=== PATIENT | male | born 1960 | race African-American/Black ===

== ENCOUNTER 2019-03-02 11:27 | Emergency (ER) | payer OTHER ==
[~2019-03-02] VITALS: Ht 165.1 cm; Wt 80.7 kg
[2019-03-02 11:35] VITALS: BP 159/80
--- NOTE | 2019-03-02 11:55 | NUR ---
PATIENT PRESENTS TO ED WITH C/O LT LEG PAIN FOR APPROX 2 WEEKS. PT DENIES ANY TRAUMA/INJURY. NO OBVIOUS DEFORMITY NOTED. +ROM TO AFFECTED EXTREMITY. PATIENT STATES PAIN OF 9/10 AT THIS TIME; VSS; POSITIONED FOR COMFORT; BEDRAILS UP X1; BED DOWN. ER MD TO EVALUATE PT.
--- NOTE | 2019-03-02 13:15 | NUR ---
Patient resting comfortably in bed. Vital Signs within normal limits. No new orders at this time.
[2019-03-02] MEDS ORDERED: KETOROLAC 60 MG/2 ML VIAL IM ONE (14:45)
[2019-03-02 15:19] LABS: BASOPHILS # (AUTO) 0.1 K/uL (0.00-0.22); BASOPHILS % (AUTO) 1.7 % (0.0-2.0); EOSINOPHILS # (AUTO) 0.2 K/uL (0-0.4); EOSINOPHILS % (AUTO) 2.1 % (0.0-4.0); HEMATOCRIT 41.3 % (36-52); HEMOGLOBIN 13.9 g/dL (12.0-18.0); LYMPHOCYTES # (AUTO) 2.9 K/uL (2.0-11.5); LYMPHOCYTES % (AUTO) 39.9 % (20.5-51.1); MEAN CORPUSCULAR HEMOGLOBIN 34 pg (27-31); MEAN CORPUSCULAR HGB CONC 34 g/dL (33-37); MEAN CORPUSCULAR VOLUME 99.6 fL (80-94); MONOCYTES # (AUTO) 0.5 K/uL (0.8-1.0); MONOCYTES % (AUTO) 6.6 % (1.7-9.3); NEUTROPHILS # (AUTO) 3.6 K/uL (1.8-7.7); NEUTROPHILS % (AUTO) 49.7 % (42.2-75.2); PLATELET COUNT (AUTO) 201 K/uL (140-450); RED BLOOD CELL COUNT(AUTO) 4.15 MIL/uL (4.20-6.10); RED CELL DISTRIBUTION WIDTH 13.5 % (11.6-13.7); WHITE BLOOD COUNT (AUTO) 7.2 K/uL (4.8-10.8)
[2019-03-02 15:26] LABS: APPEARANCE,URINE CLEAR (CLEAR); BILIRUBIN,URINE NEGATIVE (NEGATIVE); BLOOD, URINE NEGATIVE (NEGATIVE); COLOR,URINE YELLOW (YELLOW); LEUKOCYTE ESTERASE ,URINE NEGATIVE (NEGATIVE); NITRITE, URINE NEGATIVE (NEGATIVE); PH,URINE 5.5 (5.0-9.0); UGLUCOSE NEGATIVE (NEGATIVE)
[2019-03-02 15:33] LABS: ANION GAP 12.2 (8-16); CARBON DIOXIDE 26.4 mmol/L (21-32); CREATININE 1.1 mg/dL (0.7-1.3); POTASSIUM 4.6 mmol/L (3.5-5.1)
[2019-03-02 15:37] LABS: BARBITURATE, URINE NEG. ng/ml (NEG <=200); BENZODIAZEPINE, URINE NEG. ng/mL (NEG <=200); CANNABINOID, URINE POS. ng/mL (NEG <=50); COCAINE, URINE NEG. ng/mL (NEG <=300); OPIATE, URINE NEG. ng/mL (NEG <=2000); PHENCYCLIDINE SCREEN,URINE NEG. ng/mL (NEG <=25)
[2019-03-02 15:40] LABS: ALBUMIN 3.7 g/dL (3.4-5.0); TOTAL BILIRUBIN 0.9 mg/dL (0.0-1.0)
[2019-03-02 16:45] VITALS: BP 140/75
--- NOTE | 2019-03-02 16:45 | NUR ---
Patient discharged with v/s stable. Written and verbal after care instructions given and explained. Patient alert, oriented and verbalized understanding of instructions. Ambulatory with steady gait. All questions addressed prior to discharge. ID band removed. Patient advised to follow up with PMD. Rx of ATIVAN,NAPROSYN given. Patient educated on indication of medication including possible reaction and side effects. Opportunity to ask questions provided and answered.
== END 2019-03-02 16:45 | disposition home or self-care (01) ==
LOC: MED 11:27
DX: R25.2 Cramp and spasm (principal); E86.0 Dehydration
CPT/HCPCS: 36415; 80053; 80305; 81003; 85025; 96372; 99283; J1885

== ENCOUNTER 2019-03-09 11:40 | Emergency (ER) | payer OTHER ==
[~2019-03-09] VITALS: Ht 165.1 cm; Wt 79.8 kg
[2019-03-09 11:47] VITALS: BP 153/83
--- NOTE | 2019-03-09 11:53 | NUR ---
PT AMBULATED TO ER BED 6
--- NOTE | 2019-03-09 12:01 | NUR ---
DR. ANGELES BEDSIDE EVALUATING PT
--- NOTE | 2019-03-09 12:05 | NUR ---
PT C/O R LEG PAIN RADIATING FROM HIP TO CALF, 8/10, STABBING X 1 WEEK. PT WAS SEEN HERE 03/02/19, AND IS STILL HAVING PAIN. DENIES INJURY. AMBULATORY WITH STEADY GAIT. DENIES N/V/D; SKIN IS PINK/WARM/DRY; AAOX4; PT DENIES ANY FEVER, CP, SOB, OR COUGH AT THIS TIME; PATIENT STATES PAIN OF 8/10 AT THIS TIME; VSS; PATIENT POSITIONED FOR COMFORT; HOB ELEVATED; BEDRAILS UP X1; BED DOWN. ER MD MADE AWARE OF PT STATUS.
[2019-03-09 13:34] VITALS: BP 155/95
--- NOTE | 2019-03-09 13:34 | NUR ---
Patient discharged with v/s stable. Written and verbal after care instructions given and explained. Patient alert, oriented and verbalized understanding of instructions. Ambulatory with steady gait. All questions addressed prior to discharge. ID band removed. Patient advised to follow up with PMD. Rx of Valium and Ibuprofen given. Patient educated on indication of medication including possible reaction and side effects. Opportunity to ask questions provided and answered.
== END 2019-03-09 13:34 | disposition home or self-care (01) ==
LOC: MED 11:40
DX: M54.42 Lumbago with sciatica, left side (principal); F17.210 Nicotine dependence, cigarettes, uncomplicated
CPT/HCPCS: 99283

== ENCOUNTER 2019-03-14 14:24 | Emergency (ER) | payer OTHER ==
[~2019-03-14] VITALS: Ht 165.1 cm; Wt 80.5 kg
[2019-03-14 14:33] VITALS: BP 164/75
--- NOTE | 2019-03-14 14:40 | NUR ---
PT AMBULATED TO BED 5 AT THIS TIME.
--- NOTE | 2019-03-14 14:46 | NUR ---
PT BIB SELF TO THE ED WITH THE CHIEF C/O LEFT LEG PAIN FOR 3 WEEKS. DENIES FALLS. AMBULATES WITH PAIN. PT WAS HERE LAST WEEK FOR SAME REASON. TAKING IBUPROFEN AND VALIUM FROM LAST VISIT. STATES PAIN OF 6/10 AT THIS TIME. DENIES ANY OTHER PROBLEM.
--- NOTE | 2019-03-14 15:07 | NUR ---
PT BEING EVALUATED BY REBAR WORKER AT THIS TIME.
[2019-03-14] MEDS ORDERED: IBUPROFEN 600 MG TAB PO ONE (15:30)
--- NOTE | 2019-03-14 16:58 | NUR ---
Patient discharged with v/s stable. Written and verbal after care instructions given and explained. Patient alert, oriented and verbalized understanding of instructions. Ambulatory with steady gait. All questions addressed prior to discharge. ID band removed. Patient advised to follow up with PMD. Rx of NAPROSYN AND TRAMADOL given. Patient educated on indication of medication including possible reaction and side effects. Opportunity to ask questions provided and answered.
[2019-03-14 16:59] VITALS: BP 146/82
== END 2019-03-14 16:58 | disposition home or self-care (01) ==
LOC: MED 14:24
DX: G89.29 Other chronic pain (principal); M79.605 Pain in left leg; F17.210 Nicotine dependence, cigarettes, uncomplicated
CPT/HCPCS: 99283

== ENCOUNTER 2019-03-23 14:14 | Emergency (ER) | payer OTHER ==
[~2019-03-23] VITALS: Ht 165.1 cm; Wt 81.6 kg
[2019-03-23 14:32] VITALS: BP 132/83
--- NOTE | 2019-03-23 15:50 | NUR ---
PT IS A 58 Y/O MALE WHO PRESENTS TO THE ED C/O L LEG PAIN X1 MONTH. PT WAS RECENTLY SEEN IN ED AND GIVEN RX OF MOTRIN AND TRAMADOL WITH NO RELIEF. PT REPORTS 10/10 ACHING L LEG PAIN THAT DOES NOT RADIATE. NO OBVIOUS TX/DEFORMITY. PT AWAKE AND ALERT, RR EVEN/UNLABORED. PT REPOSITIONED FOR COMFORT, PT SITTING IN CHAIR. ER PROVIDER NOTIFIED. WILL CONTINUE TO MONITOR. MEDHX:DENIES RX:IBUPROFEN, TRAMADOL
--- NOTE | 2019-03-23 16:03 | NUR ---
Patient transferred to bed 8 for further care. RN re-evaluating the patient at bedside.
--- NOTE | 2019-03-23 16:05 | NUR ---
PATIENT REPORT GIVEN TO DELFIN TOMLIN. TRANSFER OF CARE AT THIS TIME.
--- NOTE | 2019-03-23 16:30 | NUR ---
PT C/O LT LEG PAIN X1 MONTH. PT REPORTS CRAMPING LEG PAIN THAT INCREASES WITH WALKING. PT WAS SEEN HERE LAST WEEK FOR SAME SYMPTOMS, WAS TOLD TO SEE AN SURGICAL SERVICES DIRECTOR, APPOINTMENT NEXT WEEK FOR PCP IN ORDER TO GET A REFERAL FOR SPECIALIST. DENIES ANY WARM, REDNESS UNDER THE CALF AT THIS TIME. PT LYING COMFORTABLY IN HIS BED. WILL CONITNUE TO MONITOR PT. MEDHX:DENIES RX:IBUPROFEN, TRAMADOL
[2019-03-23 16:48] LABS: BASOPHILS # (AUTO) 0.1 K/uL (0.00-0.22); BASOPHILS % (AUTO) 1.1 % (0.0-2.0); EOSINOPHILS # (AUTO) 0.3 K/uL (0-0.4); HEMATOCRIT 41.9 % (36-52); LYMPHOCYTES # (AUTO) 3.1 K/uL (2.0-11.5); LYMPHOCYTES % (AUTO) 43.8 % (20.5-51.1); MEAN CORPUSCULAR HEMOGLOBIN 33 pg (27-31); MEAN CORPUSCULAR HGB CONC 33 g/dL (33-37); MEAN CORPUSCULAR VOLUME 99.5 fL (80-94); MONOCYTES # (AUTO) 0.5 K/uL (0.8-1.0); MONOCYTES % (AUTO) 7.4 % (1.7-9.3); NEUTROPHILS # (AUTO) 3.1 K/uL (1.8-7.7); NEUTROPHILS % (AUTO) 43.7 % (42.2-75.2); PLATELET COUNT (AUTO) 198 K/uL (140-450); RED BLOOD CELL COUNT(AUTO) 4.22 MIL/uL (4.20-6.10); RED CELL DISTRIBUTION WIDTH 13.2 % (11.6-13.7); WHITE BLOOD COUNT (AUTO) 7.1 K/uL (4.8-10.8)
[2019-03-23 17:09] LABS: ANION GAP 16.2 (8-16); CARBON DIOXIDE 24.2 mmol/L (21-32); CREATININE 1.2 mg/dL (0.7-1.3); POTASSIUM 4.4 mmol/L (3.5-5.1)
[2019-03-23 17:15] LABS: ALBUMIN 3.9 g/dL (3.4-5.0); TOTAL BILIRUBIN 0.9 mg/dL (0.0-1.0)
[2019-03-23 17:32] LABS: APPEARANCE,URINE CLEAR (CLEAR); BILIRUBIN,URINE NEGATIVE (NEGATIVE); BLOOD, URINE NEGATIVE (NEGATIVE); COLOR,URINE YELLOW (YELLOW); LEUKOCYTE ESTERASE ,URINE NEGATIVE (NEGATIVE); NITRITE, URINE NEGATIVE (NEGATIVE); PH,URINE 5.5 (5.0-9.0); UGLUCOSE NEGATIVE (NEGATIVE)
[2019-03-23 17:52] VITALS: BP 138/73
--- NOTE | 2019-03-23 17:53 | NUR ---
Patient discharged with v/s stable. Written and verbal after care instructions given and explained. Patient alert, oriented and verbalized understanding of instructions. Ambulatory with steady gait. All questions addressed prior to discharge. ID band removed. Patient advised to follow up with PMD. Rx of DIPHENHYDRAMINE HYCL, TRAMADOL HCL, IBUPROFEN given. Patient educated on indication of medication including possible reaction and side effects. Opportunity to ask questions provided and answered.
== END 2019-03-23 17:53 | disposition home or self-care (01) ==
LOC: MED 14:14
DX: M79.605 Pain in left leg (principal); F17.200 Nicotine dependence, unspecified, uncomplicated; Z71.6 Tobacco abuse counseling
CPT/HCPCS: 36415; 80053; 81003; 85025; 85379; 93971; 99284; Q0092

== ENCOUNTER 2019-04-08 13:53 | Emergency (ER) | payer OTHER ==
[~2019-04-08] VITALS: Ht 165.1 cm; Wt 79.8 kg
[2019-04-08 14:05] VITALS: BP 169/88
--- NOTE | 2019-04-08 14:13 | NUR ---
pt ambulated to er bed 05
--- NOTE | 2019-04-08 14:14 | NUR ---
C/O L LEG PAIN RADIATING DOWN LEG TO ANKLE 06/16 X 2 MONTHS. PT WAS RECENTLY SEEN BY PCP AND GIVEN FLEXERIL BUT PT STATES IT IS NOT HELPING ANYMORE. NO OBVIOUS INJURY OR DEFORMITY TO L LEG, PT DENIES INJURY. HX: NONE RX: FLEXERIL, IBUPROFEN
--- NOTE | 2019-04-08 14:38 | NUR ---
59M C/O LEFT POSTERIOR LEG CRAMPING RADIATING TO ANKLES ON/OFF X 2 MONTHS. PCP RX FLEXERIL WHICH PROVIDES SOME RELIEF. DENIES REDNESS AND WARMTH. NO RECENTS TRAVEL. NO TENDERNESS TO PALPATION AT THIS TIME. ERMD TO JUSTINE PT.
--- NOTE | 2019-04-08 14:41 | NUR ---
DR OLMOS AT BEDSIDE
[2019-04-08 15:00] VITALS: BP 169/88
== END 2019-04-08 14:55 | disposition home or self-care (01) ==
LOC: MED 13:53
DX: R25.2 Cramp and spasm (principal)
CPT/HCPCS: 99282